=== PATIENT | male | born 1995 | race African-American/Black ===

== ENCOUNTER 2020-02-26 17:47 | Emergency (ER) | payer MEDICAID ==
[~2020-02-26] VITALS: Ht 170.2 cm; Wt 79.6 kg
[2020-02-26 17:55] VITALS: BP 131/108
--- NOTE | 2020-02-26 18:21 | NUR ---
Patient discharged to home in stable condition. Written and verbal after care instructions given. Patient verbalizes understanding of instruction.
== END 2020-02-26 18:21 | disposition home or self-care (01) ==
LOC: ER 17:51
DX: R05 Cough (principal); Z76.0 Encounter for issue of repeat prescription